=== PATIENT | female | born 1995 | race Caucasian/White ===

== ENCOUNTER 2018-01-17 11:25 | Observation (INO) | payer BC ==
[2018-01-17 11:30] VITALS: BMI 32.5
--- NOTE | 2018-01-17 12:27 | PDOC ---
History of Present Illness - General Chief Complaint: Pain Stated Complaint: PAIN/ ABD, BACK Time Seen by Provider: 01/17/18 11:50 History Source: Patient Exam Limitations: No Limitations - History of Present Illness Initial Comments: CHIEF COMPLAINT: 22 y/o afebrile female with no significant PMH c/o 10 days of low back pain and abdominal bloating. HISTORY OF PRESENT ILLNESS: The patient also admits to intermittent nausea and 1 episode of vomiting yesterday morning. She has been to 2 urgent cares who both gave her referrals for other doctors. She states her menstrual cycle started today. She denies fever, chills, cough, CP, SOB, hematuria, dysuria. She states she has not been sexually active for over a years and therefore is not concerned with STDs or . Her last normal BM was 2 days ago. She does not have a PCP as she goes to [facility] and is from [place]. Vital signs on arrival are within normal limits. REVIEW OF SYSTEMS: GENERAL/CONSTITUTIONAL: No fever/chills. No weakness. No weight change. HEAD, EYES, EARS, NOSE AND THROAT: No change in vision. No ear pain or discharge. No sore throat. CARDIOVASCULAR: No chest pain or shortness of breath. RESPIRATORY: No cough, wheezing, or hemoptysis. GASTROINTESTINAL: +abdominal cramping. +intermittent nausea and 1 episode of vomiting. No diarrhea. GENITOURINARY: No dysuria, frequency, or change in urination. MUSCULOSKELETAL: +low back pain. No joint or muscle swelling or pain. No neck pain. SKIN: No rash or easy bruising. NEUROLOGIC: No headache, vertigo, loss of consciousness, or loss of sensation. PHYSICAL EXAM: GENERAL: The patient is awake, alert, and fully oriented, in no acute distress. She is well appearing and ambulatory. HEAD: Normal with no signs of trauma. ENT: Pupils equal, round and reactive to light, extraocular movements intact, sclera anicteric, conjunctiva clear. Neck supple. LUNGS: Clear to auscultation bilaterally. Normal excursion. No respiratory distress or use of accessory muscles. CV: RRR, S1/S2, no MRG. Cap refill < 2 sec. ABDOMEN: Soft, non-distended, diffuse minimal TTP of lower abdomen. No tenderness over Mcburney's point. No rebound, guarding or rigidity. Right flank pain with palpation BACK: No CVA TTP b/l. No midline lumbar spine TTP or step offs. No paravertebral or reproducible low back pain. Full flexion and extension of lumbar spine. VAGINAL: No CMT or adnexal tenderness. Blood in the vaginal canal and coming from Os, consistent with menstruation. EXTREMITIES: Normal range of motion, no edema. NEUROLOGICAL: Normal speech, normal gait. CN II-XII grossly intact. SKIN: Warm, dry, normal turgor, no rashes or lesions noted. Past History - Past Medical History Allergies/Adverse Reactions: Allergies Allergy/AdvReac Type Severity Reaction Status Date / Time No Known Allergies Allergy Verified 01/17/18 11:26 Home Medications: Ambulatory Orders NK [No Known Home Medication] 01/17/18 COPD: No - Suicide/Smoking/Psychosocial Hx Smoking History: Never smoked Have you smoked in the past 12 months: No Information on smoking cessation initiated: No Hx Alcohol Use: No Drug/Substance Use Hx: No Substance Use Type: None *Physical Exam - Vital Signs Last Vital Signs Temp Pulse Resp BP Pulse Ox 98.5 F 76 18 125/74 100 01/17/18 11:27 01/17/18 11:27 01/17/18 11:27 01/17/18 11:27 01/17/18 11:27 ED Treatment Course - LABORATORY CBC & Chemistry Diagram: 01/17/18 12:42 01/17/18 12:42 Medical Decision Making - Medical Decision Making A/P: 22 y/o female with 10 days of abdominal cramping and low back pain. Plan is as follows: 1. Labs 2. UA/culture/hcg 3. Transvaginal Ultrasound 4. Renal/kidney ultrasound patient transferred to Dr. Jones for continuation of care. *DC/Admit/Observation/Transfer Diagnosis at time of Disposition: Abdominal pain - Referrals - Patient Instructions - Post Discharge Activity
--- NOTE | 2018-01-17 12:33 | PDOC ---
*Physical Exam - Vital Signs Last Vital Signs Temp Pulse Resp BP Pulse Ox 98.5 F 76 18 125/74 100 01/17/18 11:27 01/17/18 11:27 01/17/18 11:27 01/17/18 11:27 01/17/18 11:27 - Physical Exam Comments: 01/17/18 12:32 The patient was examined by [CASI Rodas] under my direct supervision. I personally evaluated the patient. I concur with the above findings and the plan of care. <Zbigniew Duque - Last Filed: 01/17/18 12:32> - Vital Signs Last Vital Signs Temp Pulse Resp BP Pulse Ox 98.5 F 76 18 125/74 100 01/17/18 11:27 01/17/18 11:27 01/17/18 11:27 01/17/18 11:27 01/17/18 11:27 <Evelyn Estrada - Last Filed: 01/17/18 15:56> ED Treatment Course - LABORATORY CBC & Chemistry Diagram: 01/17/18 12:42 01/17/18 12:42 - ADDITIONAL ORDERS Additional order review: Laboratory Results 01/17/18 01/17/18 01/17/18 13:47 12:42 12:42 Sodium 141 Potassium 4.4 Chloride 108 H Carbon Dioxide 27 Anion Gap 6 L BUN 23 H Creatinine 2.0 H Creat Clearance w eGFR 31.45 Random Glucose 78 Calcium 8.9 Total Bilirubin 0.5 AST 15 ALT 22 Alkaline Phosphatase 70 Total Protein 7.0 Albumin 4.0 Urine Color Straw Urine Appearance Clear Urine pH 5.0 Ur Specific [place] 1.006 Urine Protein 1+ H Urine Glucose (UA) Negative Urine Ketones Negative Urine Blood 3+ H Urine Nitrite Negative Urine Bilirubin Negative Urine Urobilinogen Negative Ur Leukocyte Esterase Negative Urine WBC (Auto) 2 Urine RBC (Auto) 27 Ur Epithelial Cells Few Urine Bacteria Rare Hyaline Casts 1 Urine Mucus Rare Urine HCG, Qual Negative Blood Type O NEGATIVE Antibody Screen Negative 01/17/18 12:42 RBC 4.44 MCV 87.0 MCHC 34.0 RDW 12.8 MPV 7.9 Neutrophils % 71.8 Lymphocytes % 18.2 Monocytes % 8.0 Eosinophils % 1.8 Basophils % 0.2 - Medications Given in the ED: ED Medications Discontinued Medications Generic Name Dose Route Start Last Admin Trade Name Freq PRN Reason Stop Dose Admin Sodium Chloride 1,000 mls @ 1,000 mls/hr 01/17/18 13:33 01/17/18 13:30 Normal Saline - IV 01/17/18 14:32 1,000 mls/hr ASDIR STA Administration Sodium Chloride 1,000 mls @ 1,000 mls/hr 01/17/18 13:34 01/17/18 13:45 Normal Saline - IV 01/17/18 14:33 1,000 mls/hr ASDIR STA Administration Ondansetron HCl 4 mg 01/17/18 13:33 01/17/18 12:50 Zofran Injection IVPUSH 01/17/18 13:34 4 mg ONCE ONE Administration <Evelyn Estrada - Last Filed: 01/17/18 15:56> Medical Decision Making - Medical Decision Making 01/17/18 15:13 The patient is a 22-year-old female, with no past medical history, who reports to the ED with 10 days of abdominal bloating and lower back pain. Patient reports associated nausea and vomiting; last episode was yesterday morning. <Evelyn Estrada - Last Filed: 01/17/18 15:56> *DC/Admit/Observation/Transfer <Zbigniew Duque - Last Filed: 01/17/18 12:32> - Attestations Scribe Attestion: 01/17/18 15:14 Documentation prepared by Evelyn Estrada, acting as medical recruiter for Zbigniew Duque MD. <Evelyn Estrada - Last Filed: 01/17/18 15:56> Diagnosis at time of Disposition: Abdominal pain
[2018-01-17] MEDS ORDERED: ONDANSETRON 4 MG/2 ML VIAL ONE (12:46)
[2018-01-17 13:00] LABS: BASO % 0.2 % (0-2.0); EOS % 1.8 % (0-4.5); HEMATOCRIT 38.6 % (32.4-45.2); HEMOGLOBIN 13.1 GM/dL (10.7-15.3); LYMPH % 18.2 % (8-40); MCH 29.6 pg (25.7-33.7); MEAN PLT VOLUME 7.9 fl (7.5-11.1); NEUT % 71.8 % (42.8-82.8); PLATELET COUNT 227 K/MM3 (134-434); RBC 4.44 M/mm3 (3.60-5.2); RDW 12.8 % (11.6-15.6); WHITE BLOOD COUNT 6.4 K/mm3 (4.0-10.0)
[2018-01-17 13:19] LABS: ANION GAP 6 (8-16); BLOOD UREA NITROGEN 23 mg/dL (7-18); CALCIUM 8.9 mg/dL (8.5-10.1); CHLORIDE 108 mmol/L (98-107); CO2 27 mmol/L (21-32); GLUCOSE,RANDOM 78 mg/dL (74-106); POTASSIUM 4.4 mmol/L (3.5-5.1); SGOT/AST 15 U/L (15-37); SGPT/ALT 22 U/L (12-78); SODIUM 141 mmol/L (136-145)
[2018-01-17 13:22] LABS: ALK PHOS 70 U/L (45-117); BILIRUBIN,TOTAL 0.5 mg/dL (0.2-1.0)
[2018-01-17] MEDS ORDERED: SODIUM CHLORIDE 1,000 ML IV STA ×4 (13:33→22:28)
[2018-01-17] MEDS ORDERED: ONDANSETRON 4 MG/2 ML VIAL IVPUSH ONE (13:33)
[2018-01-17 14:04] LABS: URINE APPEARANCE CLEAR; URINE BILIRUBIN NEGATIVE (<2.0 mg/dL); URINE COLOR STRAW; URINE GLUCOSE (UA) NEGATIVE (NEGATIVE); URINE KETONE NEGATIVE (NEGATIVE); URINE LEUK ESTERASE NEGATIVE (NEGATIVE); URINE NITRITE NEGATIVE (NEGATIVE); URINE UROBILINOGEN NEGATIVE mg/dL (0.2-1.0)
[2018-01-17 14:08] LABS: HCG,QUALITATIVE URINE NEGATIVE
[2018-01-17 14:09] LABS: URINE PROTEIN 1+ (NEGATIVE)
[2018-01-17 14:20] LABS: EPI CELLS FEW /HPF (FEW); URINE BACTERIA RARE /hpf (NONE SEEN); URINE HYALINE CAST 1 /lpf; URINE MUCUS RARE
--- NOTE | 2018-01-17 17:04 | PDOC ---
*Physical Exam - Vital Signs Last Vital Signs Temp Pulse Resp BP Pulse Ox 98.5 F 76 18 125/74 100 01/17/18 11:27 01/17/18 11:27 01/17/18 11:27 01/17/18 11:27 01/17/18 11:27 ED Treatment Course - LABORATORY CBC & Chemistry Diagram: 01/17/18 12:42 01/17/18 12:42 - ADDITIONAL ORDERS Additional order review: Laboratory Results 01/17/18 01/17/18 01/17/18 13:47 12:42 12:42 Sodium 141 Potassium 4.4 Chloride 108 H Carbon Dioxide 27 Anion Gap 6 L BUN 23 H Creatinine 2.0 H Creat Clearance w eGFR 31.45 Random Glucose 78 Calcium 8.9 Total Bilirubin 0.5 AST 15 ALT 22 Alkaline Phosphatase 70 Total Protein 7.0 Albumin 4.0 Urine Color Straw Urine Appearance Clear Urine pH 5.0 Ur Specific [place] 1.006 Urine Protein 1+ H Urine Glucose (UA) Negative Urine Ketones Negative Urine Blood 3+ H Urine Nitrite Negative Urine Bilirubin Negative Urine Urobilinogen Negative Ur Leukocyte Esterase Negative Urine WBC (Auto) 2 Urine RBC (Auto) 27 Ur Epithelial Cells Few Urine Bacteria Rare Hyaline Casts 1 Urine Mucus Rare Urine HCG, Qual Negative Blood Type O NEGATIVE Antibody Screen Negative 01/17/18 12:42 RBC 4.44 MCV 87.0 MCHC 34.0 RDW 12.8 MPV 7.9 Neutrophils % 71.8 Lymphocytes % 18.2 Monocytes % 8.0 Eosinophils % 1.8 Basophils % 0.2 - RADIOLOGY Radiology Studies Ordered: Category Date Time Status ABDOMEN & PELVIS CT W/O CONTR [CT] Stat CT Scan 01/17/18 16:56 Ordered - Medications Given in the ED: ED Medications Discontinued Medications Generic Name Dose Route Start Last Admin Trade Name Freq PRN Reason Stop Dose Admin Sodium Chloride 1,000 mls @ 1,000 mls/hr 01/17/18 13:33 01/17/18 13:30 Normal Saline - IV 01/17/18 14:32 1,000 mls/hr ASDIR STA Administration Sodium Chloride 1,000 mls @ 1,000 mls/hr 01/17/18 13:34 01/17/18 13:45 Normal Saline - IV 01/17/18 14:33 1,000 mls/hr ASDIR STA Administration Ondansetron HCl 4 mg 01/17/18 13:33 01/17/18 12:50 Zofran Injection IVPUSH 01/17/18 13:34 4 mg ONCE ONE Administration Medical Decision Making - Medical Decision Making 01/17/18 17:[address] abd pelvis to r/o appendicitis 01/17/18 18:[address] go to [address] after PO contrast. 01/17/18 18:27 01/17/18 20:09 CT read : The liver, gallbladder, adrenals, pancreas, and spleen are unremarkable, given the limitations of nonenhanced CT. There is no hydronephrosis or hydroureter bilaterally. There are no renal calculi bilaterally. The bilateral kidneys are unremarkable, given the limitations of nonenhanced CT. There are no enlarged abdominal or pelvic lymph nodes, by size criteria. The pelvic organs are grossly unremarkable, given the limitations of CT for evaluating them. There is a tampon within the vagina. The appendix is normal. The remainder of the bowel is unremarkable. The visualized bony structures are within normal limits. Findings: Unremarkable CT of the abdomen and pelvis, given the limitations of a nonenhanced CT *DC/Admit/Observation/Transfer Diagnosis at time of Disposition: Abdominal pain, Acute kidney injury (nontraumatic) - Discharge Dispostion Decision to Admit order: Yes - Referrals - Patient Instructions - Post Discharge Activity
[2018-01-17] MEDS ORDERED: ACETAMINOPHEN 1000 MG/100 ML VIAL (NON FORMULARY) IVPB ONE (20:35)
[2018-01-17] MEDS ORDERED: ACETAMINOPHEN INJECTION 100 ML IVPB ONE (20:39)
[2018-01-17 21:25] LABS: ALBUMIN 3.4 g/dl (3.4-5.0); ANION GAP 8 (8-16); BLOOD UREA NITROGEN 22 mg/dL (7-18); CALCIUM 7.9 mg/dL (8.5-10.1); CHLORIDE 111 mmol/L (98-107); CO2 25 mmol/L (21-32); GLUCOSE,RANDOM 104 mg/dL (74-106); SODIUM 144 mmol/L (136-145)
[2018-01-17 21:28] LABS: ALK PHOS 58 U/L (45-117); BILIRUBIN,TOTAL 0.3 mg/dL (0.2-1.0); CREATININE 1.7 mg/dL (0.55-1.02); SGPT/ALT 19 U/L (12-78); TOT PROT 5.9 g/dl (6.4-8.2)
[2018-01-17 21:29] LABS: POTASSIUM 4.4 mmol/L (3.5-5.1); SGOT/AST 18 U/L (15-37)
--- NOTE | 2018-01-17 21:41 | HP ---
Admitting History and Physical - Primary Care Physician PCP: Lelia Haywood - Admission History of Present Illness: The patient also admits to intermittent nausea and 1 episode of vomiting yesterday morning. She has been to 2 urgent cares who both gave her referrals for other doctors. She states her menstrual cycle started today. She denies fever, chills, cough, CP, SOB, hematuria, dysuria. She states she has not been sexually active for over a years and therefore is not concerned with STDs or . Her last normal BM was 2 days ago. She does not have a PCP as she goes to [facility] and is from [place]. - Past Medical History ...LMP: 01/17/18 ...: No - Smoking History Smoking history: Never smoked Have you smoked in the past 12 months: No - Alcohol/Substance Use Hx Alcohol Use: No Home Medications - Allergies Allergies/Adverse Reactions: Allergies Allergy/AdvReac Type Severity Reaction Status Date / Time No Known Allergies Allergy Verified 01/17/18 11:26 - Home Medications Home Medications: Ambulatory Orders NK [No Known Home Medication] 01/17/18 Physical Examination Vital Signs: Vital Signs Temperature 98.5 F 01/17/18 11:27 Pulse Rate 72 01/17/18 17:47 Respiratory Rate 18 01/17/18 17:47 Blood Pressure 116/72 01/17/18 17:47 O2 Sat by Pulse Oximetry (%) 100 01/17/18 17:47 Constitutional: Yes: No Distress HENT: Yes: Atraumatic Neck: Yes: Supple Cardiovascular: Yes: Regular Rate and Rhythm Respiratory: Yes: CTA Bilaterally Gastrointestinal: Yes: Normal Bowel Sounds Extremities: Yes: WNL Neurological: Yes: Alert, Oriented Labs: CBC, BMP 01/17/18 12:42 01/17/18 20:50 Problem List - Problems (1) Abdominal pain Assessment/Plan: much better probably nsaid related Code(s): R10.9 - UNSPECIFIED ABDOMINAL PAIN (2) Acute kidney injury (nontraumatic) Assessment/Plan: ivf renal consult was on nsaids for back pain Code(s): N17.9 - ACUTE KIDNEY FAILURE, UNSPECIFIED Assessment/Plan Laboratory Tests 01/17/18 01/17/18 01/17/18 12:42 12:42 12:42 WBC 6.4 RBC 4.44 Hgb 13.1 Hct 38.6 MCV 87.0 MCH 29.6 MCHC 34.0 RDW 12.8 Plt Count 227 MPV 7.9 Absolute Neuts (auto) 4.6 Neutrophils % 71.8 Lymphocytes % 18.2 Monocytes % 8.0 Eosinophils % 1.8 Basophils % 0.2 Nucleated RBC % 0 Sodium 141 Potassium 4.4 Chloride 108 H Carbon Dioxide 27 Anion Gap 6 L BUN 23 H Creatinine 2.0 H Creat Clearance w eGFR 31.45 Random Glucose 78 Calcium 8.9 Total Bilirubin 0.5 AST 15 ALT 22 Alkaline Phosphatase 70 Total Protein 7.0 Albumin 4.0 Urine Color Urine Appearance Urine pH Ur Specific [place] Urine Protein Urine Glucose (UA) Urine Ketones Urine Blood Urine Nitrite Urine Bilirubin Urine Urobilinogen Ur Leukocyte Esterase Urine WBC (Auto) Urine RBC (Auto) Ur Epithelial Cells Urine Bacteria Hyaline Casts Urine Mucus Urine HCG, Qual Blood Type O NEGATIVE Antibody Screen Negative 01/17/18 01/17/18 13:47 20:50 WBC RBC Hgb Hct MCV MCH MCHC RDW Plt Count MPV Absolute Neuts (auto) Neutrophils % Lymphocytes % Monocytes % Eosinophils % Basophils % Nucleated RBC % Sodium 144 Potassium 4.4 Chloride 111 H Carbon Dioxide 25 Anion Gap 8 BUN 22 H Creatinine 1.7 H Creat Clearance w eGFR 37.94 Random Glucose 104 Calcium 7.9 L Total Bilirubin 0.3 AST 18 ALT 19 Alkaline Phosphatase 58 D Total Protein 5.9 L Albumin 3.4 Urine Color Straw Urine Appearance Clear Urine pH 5.0 Ur Specific [place] 1.006 Urine Protein 1+ H Urine Glucose (UA) Negative Urine Ketones Negative Urine Blood 3+ H Urine Nitrite Negative Urine Bilirubin Negative Urine Urobilinogen Negative Ur Leukocyte Esterase Negative Urine WBC (Auto) 2 Urine RBC (Auto) 27 Ur Epithelial Cells Few Urine Bacteria Rare Hyaline Casts 1 Urine Mucus Rare Urine HCG, Qual Negative Blood Type Antibody Screen Active Medications Generic Name Dose Route Start Last Admin Trade Name Freq PRN Reason Stop Dose Admin Acetaminophen 650 mg 01/17/18 21:43 01/18/18 14:25 Tylenol - PO 650 mg Q6H PRN Administration FEVER Sodium Chloride 1,000 mls @ 100 mls/hr 01/17/18 21:45 01/18/18 11:29 Normal Saline - IV 100 mls/hr ASDIR WEST Administration Ondansetron HCl 4 mg 01/17/18 21:43 Zofran Injection IVPB Q4H PRN NAUSEA AND/OR VOMITING Pantoprazole Sodium 40 mg 01/18/18 17:00 Protonix - PO DAILY WEST
[2018-01-17] MEDS ORDERED: ONDANSETRON 4 MG/2 ML VIAL IVPB PRN (21:43)
[2018-01-17] MEDS: SODIUM CHLORIDE 1,000 ML IV SCH (23:20)
[2018-01-18] MEDS ORDERED: ACETAMINOPHEN 325 MG TABLET (FP) ONE (04:36)
[2018-01-18] MEDS: ACETAMINOPHEN 325 MG TABLET (FP) PO PRN ×3 (04:39→23:15)
[2018-01-18 06:45] LABS: BASO % 0.2 % (0-2.0); EOS % 1.1 % (0-4.5); HEMATOCRIT 33.1 % (32.4-45.2); HEMOGLOBIN 11.5 GM/dL (10.7-15.3); LYMPH % 18.9 % (8-40); MCH 30.4 pg (25.7-33.7); MCHC 34.7 g/dl (32.0-36.0); MEAN CELL VOLUME 87.6 fl (80-96); MONO % 9.6 % (3.8-10.2); NEUT % 70.2 % (42.8-82.8); PLATELET COUNT 171 K/MM3 (134-434); RBC 3.78 M/mm3 (3.60-5.2); RDW 12.8 % (11.6-15.6); WHITE BLOOD COUNT 6.7 K/mm3 (4.0-10.0)
[2018-01-18 07:26] LABS: ALBUMIN 3.2 g/dl (3.4-5.0); ANION GAP 6 (8-16); BLOOD UREA NITROGEN 19 mg/dL (7-18); CALCIUM 7.9 mg/dL (8.5-10.1); CHLORIDE 115 mmol/L (98-107); CO2 23 mmol/L (21-32); CREATININE 1.7 mg/dL (0.55-1.02); GLUCOSE,RANDOM 81 mg/dL (74-106); POTASSIUM 4.5 mmol/L (3.5-5.1); SGOT/AST 15 U/L (15-37); SGPT/ALT 18 U/L (12-78); SODIUM 144 mmol/L (136-145)
[2018-01-18 07:29] LABS: ALK PHOS 56 U/L (45-117); BILIRUBIN,TOTAL 0.3 mg/dL (0.2-1.0); TOT PROT 5.5 g/dl (6.4-8.2)
[2018-01-18] MEDS: SODIUM CHLORIDE 1,000 ML IV SCH (11:29)
--- NOTE | 2018-01-18 16:23 | PN ---
Progress Note, Physician History of Present Illness: feeling better - Current Medication List Current Medications: Active Medications Acetaminophen (Tylenol -) 650 mg PO Q6H PRN PRN Reason: FEVER Last Admin: 01/18/18 14:25 Dose: 650 mg Sodium Chloride (Normal Saline -) 1,000 mls @ 100 mls/hr IV ASDIR WEST Last Admin: 01/18/18 11:29 Dose: 100 mls/hr Ondansetron HCl (Zofran Injection) 4 mg IVPB Q4H PRN PRN Reason: NAUSEA AND/OR VOMITING - Objective Vital Signs: Vital Signs Temperature 99.4 F 01/18/18 15:32 Pulse Rate 88 01/18/18 15:32 Respiratory Rate 20 01/18/18 15:32 Blood Pressure 128/69 01/18/18 15:32 O2 Sat by Pulse Oximetry (%) 99 01/18/18 08:55 Constitutional: Yes: No Distress HENT: Yes: Atraumatic Neck: Yes: Supple Cardiovascular: Yes: Regular Rate and Rhythm Respiratory: Yes: CTA Bilaterally Gastrointestinal: Yes: Normal Bowel Sounds Extremities: Yes: WNL Edema: No Neurological: Yes: Alert, Oriented Labs: CBC, BMP 01/18/18 06:05 01/18/18 06:05 Problem List - Problems (1) Abdominal pain Assessment/Plan: resolved tolerating diet Code(s): R10.9 - UNSPECIFIED ABDOMINAL PAIN (2) Acute kidney injury (nontraumatic) Assessment/Plan: cr improving renal on board continue ivf Code(s): N17.9 - ACUTE KIDNEY FAILURE, UNSPECIFIED
--- NOTE | 2018-01-18 16:51 | CON.GI ---
Consult Consult Specialty:: GI Reason for Consultation:: Dyspepsia - History of Present Illness History of Present Illness: A healthy 22F with acute onset abdominal pain and few episodes of nausea and vomiting after rx for back pain with an NSAID, which she took continuously for few days. Was also noted to have mild BUN and Cr elevation. No persona, or family hx of GI/ problems. Denees fever, chills, jaundice, dysophagia, odynophagia, diarrhea, melena, hematochezia. Tolerated regular diet this afternoon w/o issues. Reports being no longer symptomatic. On IVF and antiemetic PRN. CBC normal, CMP significant for mid renal insufficiency, which is improving. ?lipase - Past Medical History ...LMP: 01/17/18 ...: No - Alcohol/Substance Use Hx Alcohol Use: No - Smoking History Smoking history: Never smoked Have you smoked in the past 12 months: No Home Medications - Allergies Allergies/Adverse Reactions: Allergies Allergy/AdvReac Type Severity Reaction Status Date / Time No Known Allergies Allergy Verified 01/17/18 11:26 - Home Medications Home Medications: Ambulatory Orders NK [No Known Home Medication] 01/17/18 Family Disease History - Family Disease History Family History: Unremarkable Review of Systems Findings/Remarks: as per HPI. H&P, ED Physical Exam-GI Vital Signs: Vital Signs Temperature 99.4 F 01/18/18 15:32 Pulse Rate 88 01/18/18 15:32 Respiratory Rate 20 01/18/18 15:32 Blood Pressure 128/69 01/18/18 15:32 O2 Sat by Pulse Oximetry (%) 99 01/18/18 08:55 Constitutional: Yes: Well Nourished, No Distress, Calm Eyes: Yes: Conjunctiva Clear HENT: Yes: Atraumatic Neck: Yes: Supple Cardiovascular: Yes: Regular Rate and Rhythm Respiratory: Yes: Regular Gastrointestinal Inspection: No: Ascites, Distention ...Auscultate: Yes: Normoactive Bowel Sounds ...Palpate: Yes: Soft. No: Firm/Rigid, Guarding, Mass, Tenderness, Tenderness, Epigastium, Tenderness, Rebound Neurological: Yes: Alert, Oriented Labs: CBC, BMP 01/18/18 06:05 01/18/18 06:05 Laboratory Last Values WBC 6.7 K/mm3 (4.0-10.0) 01/18/18 06:05 RBC 3.78 M/mm3 (3.60-5.2) 01/18/18 06:05 Hgb 11.5 GM/dL (10.7-15.3) 01/18/18 06:05 Hct 33.1 % (32.4-45.2) 01/18/18 06:05 MCV 87.6 fl (80-96) 01/18/18 06:05 MCH 30.4 pg (25.7-33.7) 01/18/18 06:05 MCHC 34.7 g/dl (32.0-36.0) 01/18/18 06:05 RDW 12.8 % (11.6-15.6) 01/18/18 06:05 Plt Count 171 K/MM3 (134-434) D 01/18/18 06:05 MPV 8.0 fl (7.5-11.1) 01/18/18 06:05 Absolute Neuts (auto) 4.7 # 01/18/18 06:05 Neutrophils % 70.2 % (42.8-82.8) 01/18/18 06:05 Lymphocytes % 18.9 % (8-40) 01/18/18 06:05 Monocytes % 9.6 % (3.8-10.2) 01/18/18 06:05 Eosinophils % 1.1 % (0-4.5) 01/18/18 06:05 Basophils % 0.2 % (0-2.0) 01/18/18 06:05 Nucleated RBC % 0 % (0-0) 01/18/18 06:05 Sodium 144 mmol/L (136-145) 01/18/18 06:05 Potassium 4.5 mmol/L (3.5-5.1) 01/18/18 06:05 Chloride 115 mmol/L (98-107) H 01/18/18 06:05 Carbon Dioxide 23 mmol/L (21-32) 01/18/18 06:05 Anion Gap 6 (8-16) L 01/18/18 06:05 BUN 19 mg/dL (7-18) H 01/18/18 06:05 Creatinine 1.7 mg/dL (0.55-1.02) H 01/18/18 06:05 Creat Clearance w eGFR 37.94 (>60) 01/18/18 06:05 Random Glucose 81 mg/dL (74-106) 01/18/18 06:05 Calcium 7.9 mg/dL (8.5-10.1) L 01/18/18 06:05 Total Bilirubin 0.3 mg/dL (0.2-1.0) 01/18/18 06:05 AST 15 U/L (15-37) 01/18/18 06:05 ALT 18 U/L (12-78) 01/18/18 06:05 Alkaline Phosphatase 56 U/L (45-117) 01/18/18 06:05 Total Protein 5.5 g/dl (6.4-8.2) L 01/18/18 06:05 Albumin 3.2 g/dl (3.4-5.0) L 01/18/18 06:05 Urine Color Straw 01/17/18 13:47 Urine Appearance Clear 01/17/18 13:47 Urine pH 5.0 (5.0-8.0) 01/17/18 13:47 Ur Specific [place] 1.006 (1.001-1.035) 01/17/18 13:47 Urine Protein 1+ (NEGATIVE) H 01/17/18 13:47 Urine Glucose (UA) Negative (NEGATIVE) 01/17/18 13:47 Urine Ketones Negative (NEGATIVE) 01/17/18 13:47 Urine Blood 3+ (NEGATIVE) H 01/17/18 13:47 Urine Nitrite Negative (NEGATIVE) 01/17/18 13:47 Urine Bilirubin Negative (<2.0 mg/dL) 01/17/18 13:47 Urine Urobilinogen Negative mg/dL (0.2-1.0) 01/17/18 13:47 Ur Leukocyte Esterase Negative (NEGATIVE) 01/17/18 13:47 Urine WBC (Auto) 2 /hpf (3-5) 01/17/18 13:47 Urine RBC (Auto) 27 /hpf (0-3) 01/17/18 13:47 Ur Epithelial Cells Few /HPF (FEW) 01/17/18 13:47 Urine Bacteria Rare /hpf (NONE SEEN) 01/17/18 13:47 Hyaline Casts 1 /lpf 01/17/18 13:47 Urine Mucus Rare 01/17/18 13:47 Urine HCG, Qual Negative 01/17/18 13:47 Blood Type O NEGATIVE 01/17/18 12:42 Antibody Screen Negative 01/17/18 12:42 Imaging - Results Cat Scan: Report Reviewed Ultrasound: Report Reviewed Problem List - Problems (1) Dyspepsia Code(s): R10.13 - EPIGASTRIC PAIN (2) Abdominal pain Code(s): R10.9 - UNSPECIFIED ABDOMINAL PAIN (3) Acute kidney injury (nontraumatic) Code(s): N17.9 - ACUTE KIDNEY FAILURE, UNSPECIFIED Assessment/Plan A healthy 22 with acute onset dyspepsia after initialing NSAID therapy for back pain. No stigmata of GI bleeding, acute/surgical abdomen, or significant inflammatory process. Asymptomatic. Tolerating regular diet. ?NSAID gastritis/ nephropathy, ?gastroenteritis. ?mild pancreatitis. Back pain management as per primary team. Diet as tolerated. Add Protonics 40 mg po qam x 14 days. Stop NSAIDs. Follow up with GI as OP in 1 week. Discussed with the patient.
--- NOTE | 2018-01-18 17:34 | CONSULT ---
Consult Consult Specialty:: Nephrology Reason for Consultation:: KARLA - History of Present Illness Chief Complaint: back pain History of Present Illness: Pt is a 22 year old female with no significant pmhx who presents to the ER with back pain. She also had an episode of vomiting. She has had the back pain for about 10 days. She went to urgent care who gave her naproxen and a muscle relaxant. She was found to be in renal failure and I was called to evaluate her. She denies history of CKD. She denies taking any meds aside from a few days of naproxen. She denies dysuria or hematuria. She denies family history of CKD. She denies shortness of breath or lower ext edema. She gave a urine sample however she is on her menstrual period. - History Source History Provided By: Patient, Medical Record - Past Medical History ...LMP: 01/17/18 ...: No - Alcohol/Substance Use Hx Alcohol Use: No - Smoking History Smoking history: Never smoked Have you smoked in the past 12 months: No Home Medications - Allergies Allergies/Adverse Reactions: Allergies Allergy/AdvReac Type Severity Reaction Status Date / Time No Known Allergies Allergy Verified 01/17/18 11:26 - Home Medications Home Medications: Ambulatory Orders NK [No Known Home Medication] 01/17/18 Family Disease History - Family Disease History Family History: Denies Review of Systems - Review of Systems Constitutional: reports: Malaise Eyes: reports: No Symptoms HENT: reports: No Symptoms Neck: reports: No Symptoms Cardiovascular: reports: No Symptoms Respiratory: reports: No Symptoms Gastrointestinal: reports: No Symptoms Genitourinary: denies: Burning, Dysuria Musculoskeletal: reports: Back Pain Neurological: reports: No Symptoms Endocrine: reports: No Symptoms Hematology/Lymphatic: reports: No Symptoms Psychiatric: reports: No Symptoms Physical Exam Vital Signs: Vital Signs Temperature 99.4 F 01/18/18 15:32 Pulse Rate 88 01/18/18 15:32 Respiratory Rate 20 01/18/18 15:32 Blood Pressure 128/69 01/18/18 15:32 O2 Sat by Pulse Oximetry (%) 99 01/18/18 08:55 Constitutional: Yes: Calm Eyes: Yes: Conjunctiva Clear HENT: Yes: Atraumatic Neck: Yes: Supple Cardiovascular: Yes: S1, S2 Respiratory: Yes: CTA Bilaterally Gastrointestinal: Yes: Normal Bowel Sounds, Soft Renal/: Yes: WNL Breast(s): Yes: WNL Musculoskeletal: Yes: WNL Edema: No Integumentary: Yes: WNL Neurological: Yes: Oriented Psychiatric: Yes: Oriented Labs: CBC, BMP 01/18/18 06:05 01/18/18 06:05 Selected Entries 01/17/18 01/18/18 11:27 15:32 Blood Pressure 125/74 128/69 Laboratory Tests 01/17/18 01/17/18 01/17/18 12:42 12:42 13:47 Hgb 13.1 Hct 38.6 Sodium Potassium Creatinine 2.0 H Creat Clearance w eGFR 31.45 Urine Protein 1+ H Urine Blood 3+ H Urine HCG, Qual Negative 01/17/18 01/18/18 01/18/18 20:50 06:05 06:05 Hgb 11.5 Hct 33.1 Sodium 144 144 Potassium 4.4 4.5 Creatinine 1.7 H 1.7 H Creat Clearance w eGFR 37.94 37.94 Urine Protein Urine Blood Urine HCG, Qual Imaging - Results Ultrasound: Report Reviewed (renal ultrasound reviewed) Problem List - Problems (1) Back pain Code(s): M54.9 - DORSALGIA, UNSPECIFIED (2) Abdominal pain Code(s): R10.9 - UNSPECIFIED ABDOMINAL PAIN (3) Acute kidney injury (nontraumatic) Code(s): N17.9 - ACUTE KIDNEY FAILURE, UNSPECIFIED Assessment/Plan Current Medications Generic Name Dose Route Start Last Admin Trade Name Freq PRN Reason Stop Dose Admin Acetaminophen 650 mg 01/17/18 21:43 01/18/18 14:25 Tylenol - PO 650 mg Q6H PRN Administration FEVER Sodium Chloride 1,000 mls @ 100 mls/hr 01/17/18 21:45 01/18/18 11:29 Normal Saline - IV 100 mls/hr ASDIR WEST Administration Ondansetron HCl 4 mg 01/17/18 21:43 Zofran Injection IVPB Q4H PRN NAUSEA AND/OR VOMITING Pantoprazole Sodium 40 mg 01/18/18 17:00 Protonix - PO DAILY WEST Impression 1. KARLA 2. microscopic hematuria - may be from menstrual period 3. back pain Plan - check urine lytes and lap layer (may be affected as she is on fluids) - check cpk - cont with fluids - renal ultrasound reviewed - repeat ua now - pt asked me to called her mom, Terra. [phone] - discussed plan at length - mother says pt first felt the pain after lifting something
[2018-01-18] MEDS: PANTOPRAZOLE 40 MG TABLET (FP) PO SCH (18:34)
[2018-01-18 19:40] LABS: ALBUMIN 3.3 g/dl (3.4-5.0); ANION GAP 9 (8-16); BILIRUBIN,TOTAL 0.3 mg/dL (0.2-1.0); BLOOD UREA NITROGEN 16 mg/dL (7-18); CALCIUM 8.1 mg/dL (8.5-10.1); CHLORIDE 114 mmol/L (98-107); CO2 23 mmol/L (21-32); CREATININE 1.7 mg/dL (0.55-1.02); GLUCOSE,RANDOM 87 mg/dL (74-106); SGOT/AST 13 U/L (15-37); SGPT/ALT 18 U/L (12-78); SODIUM 146 mmol/L (136-145); TOT PROT 5.8 g/dl (6.4-8.2)
[2018-01-18 19:41] LABS: ALK PHOS 57 U/L (45-117)
[2018-01-18 21:33] LABS: URINE APPEARANCE CLEAR; URINE BILIRUBIN NEGATIVE (<2.0 mg/dL); URINE COLOR COLORLESS; URINE GLUCOSE (UA) NEGATIVE (NEGATIVE); URINE KETONE NEGATIVE (NEGATIVE); URINE LEUK ESTERASE NEGATIVE (NEGATIVE); URINE NITRITE NEGATIVE (NEGATIVE); URINE PROTEIN NEGATIVE (NEGATIVE); URINE UROBILINOGEN NEGATIVE mg/dL (0.2-1.0)
[2018-01-18 21:49] LABS: EPI CELLS RARE /HPF (FEW)
[2018-01-18] MEDS ORDERED: SODIUM CHLORIDE 0.45% 1,000 ML IV SCH ×2 (23:00→23:15)
--- NOTE | 2018-01-18 23:00 | PN ---
Progress Note (short form) - Note Progress Note: Laboratory Tests 01/18/18 01/18/18 18:45 21:00 Sodium 146 H Potassium 4.0 Creatinine 1.7 H Urine Protein Negative Urine Blood 2+ H labs reviewed change fluids to 1/2 ns repeat labs in am Laboratory Tests 01/18/18 18:45 Creatine Kinase 47 cpk normal - FENa is 3.84 with a high urine sodium, pt had received several liters of saline prior, likely not very accurate - called pts mother, Terra, and gave her an update Dr Hernandez Problem List - Problems (1) Back pain Code(s): M54.9 - DORSALGIA, UNSPECIFIED (2) Abdominal pain Code(s): R10.9 - UNSPECIFIED ABDOMINAL PAIN (3) Acute kidney injury (nontraumatic) Code(s): N17.9 - ACUTE KIDNEY FAILURE, UNSPECIFIED
[2018-01-19 07:23] LABS: ALBUMIN 3.1 g/dl (3.4-5.0); ANION GAP 7 (8-16); BILIRUBIN,TOTAL 0.4 mg/dL (0.2-1.0); BLOOD UREA NITROGEN 14 mg/dL (7-18); CALCIUM 8.1 mg/dL (8.5-10.1); CHLORIDE 113 mmol/L (98-107); CO2 24 mmol/L (21-32); CREATININE 1.7 mg/dL (0.55-1.02); GLUCOSE,RANDOM 72 mg/dL (74-106); POTASSIUM 4.1 mmol/L (3.5-5.1); SGOT/AST 14 U/L (15-37); SGPT/ALT 17 U/L (12-78); SODIUM 144 mmol/L (136-145); TOT PROT 5.5 g/dl (6.4-8.2)
[2018-01-19 07:24] LABS: ALK PHOS 53 U/L (45-117)
[2018-01-19] MEDS: PANTOPRAZOLE 40 MG TABLET (FP) PO SCH (09:50)
--- NOTE | 2018-01-19 10:51 | PN ---
Progress Note, Physician Chief Complaint: im feeling a little better History of Present Illness: patient seen adn examined at bedside. states she had experienced back pain overnight but it was relieved with tylenol. she is not feeling nausea anymore. she denies any Cp/SOb/N/v and is urinating without any problems. Her Cr still remains at 1.7 as of this morning. renal U/S showed no evidence of hydronephrosis or any acute obstruction. - Current Medication List Current Medications: Active Medications Acetaminophen (Tylenol -) 650 mg PO Q6H PRN PRN Reason: FEVER Last Admin: 01/18/18 23:15 Dose: 650 mg Sodium Chloride (1/2 Normal Saline) 1,000 mls @ 125 mls/hr IV ASDIR WEST Last Admin: 01/18/18 23:15 Dose: 125 mls/hr Ondansetron HCl (Zofran Injection) 4 mg IVPB Q4H PRN PRN Reason: NAUSEA AND/OR VOMITING Pantoprazole Sodium (Protonix -) 40 mg PO DAILY [facility] Last Admin: 01/19/18 09:50 Dose: 40 mg - Objective Vital Signs: Vital Signs Temperature 97.9 F 01/19/18 06:00 Pulse Rate 62 01/19/18 06:00 Respiratory Rate 20 01/19/18 06:00 Blood Pressure 130/66 01/19/18 06:00 O2 Sat by Pulse Oximetry (%) 99 01/19/18 06:00 Constitutional: Yes: No Distress Cardiovascular: Yes: Regular Rate and Rhythm, S1, S2 Respiratory: Yes: CTA Bilaterally Gastrointestinal: Yes: Normal Bowel Sounds, Soft. No: Tenderness Musculoskeletal: Yes: Back Pain Edema: No (no LE edema) Labs: CBC, BMP 01/18/18 06:05 01/19/18 06:30 - ....Imaging Ultrasound: Report Reviewed Problem List - Problems (1) Abdominal pain Code(s): R10.9 - UNSPECIFIED ABDOMINAL PAIN (2) Acute kidney injury (nontraumatic) Code(s): N17.9 - ACUTE KIDNEY FAILURE, UNSPECIFIED (3) Back pain Code(s): M54.9 - DORSALGIA, UNSPECIFIED Assessment/Plan patients Cr still remains at 1.7 -cont w/ fluids -monitor CMP and fluid status -monitor pain- avoid nephrotoxic drugs
[2018-01-19 13:00] VITALS: BP 108/76; PULSE 69; TEMP 97.7
--- NOTE | 2018-01-19 13:51 | DS ---
Physical Examination Vital Signs: Vital Signs Temperature 97.7 F 01/19/18 10:00 Pulse Rate 69 01/19/18 10:00 Respiratory Rate 20 01/19/18 10:00 Blood Pressure 108/76 01/19/18 10:00 O2 Sat by Pulse Oximetry (%) 99 01/19/18 06:00 Constitutional: Yes: No Distress HENT: Yes: Atraumatic Neck: Yes: Supple Cardiovascular: Yes: Regular Rate and Rhythm Respiratory: Yes: CTA Bilaterally Gastrointestinal: Yes: Normal Bowel Sounds Extremities: Yes: WNL Neurological: Yes: Alert, Oriented Labs: CBC, BMP 01/18/18 06:05 01/19/18 06:30 Discharge Summary Reason For Visit: ACUTE NONTRAUMATIC KIDNEY INJURY, ABDOMINAL PAIN Current Active Problems Abdominal pain (Acute) Acute kidney injury (nontraumatic) (Acute) Back pain (Acute) Dyspepsia (Acute) - Instructions Diet, Activity, Other Instructions: avoid nephrotoxic medicine see dr hernandez as per him Referrals: Shaun Hernandez MD [Staff Physician] - Lelia Haywood MD [Staff Physician] - Disposition: HOME - Home Medications Comprehensive Discharge Medication List: Ambulatory Orders NK [No Known Home Medication] 01/17/18 avoid nephro[address] medicine see dr hernandez as per him dc home
--- NOTE | 2018-01-19 16:30 | PN ---
Teaching Attending Note Name of Resident: Namita Ortiz (Nephrology) ATTENDING PHYSICIAN STATEMENT I saw and evaluated the patient. I reviewed the resident's note and discussed the case with the resident. I agree with the resident's findings and plan as documented. Renal Follow UP Pt seen and examined at bedside. She is awake and alert. She denies shortness of breath. Laboratory Tests 01/18/18 01/18/18 01/19/18 18:45 21:00 06:30 Sodium 144 Creatinine 1.7 H 1.7 H Urine Protein Negative Urine Blood 2+ H GHAZALA M-[facility] PERRI Screen c-ANCA Proteinase 3 (PR3) p-ANCA Atypical p-ANCA Myeloperoxidase Ab Double Strand DNA Ab Glomerular Base Memb Ab 01/19/18 01/19/18 01/19/18 09:15 09:15 09:15 Sodium Creatinine Urine Protein Urine Blood GHAZALA M-[facility] Pending PERRI Screen Pending c-ANCA Pending Proteinase 3 (PR3) Pending p-ANCA Pending Atypical p-ANCA Pending Myeloperoxidase Ab Pending Double Strand DNA Ab Pending Glomerular Base Memb Ab Pending cardio s1s2 pulm clear GI soft, obese back pain on palpation lower back ext neg edema neuro awake and alert Impression 1. KARLA vs CKD 2. microscopic hematuria - may be from menstrual period 3. back pain Plan - family braught in old records, pt had blood in her urine from last years - creatinine is unchanged - sent part of CKD workup - will see pt in office next week - discussed kidney biopsy with pt and family - pt sister at bedside - discussed plan at length Problem List - Problems (1) Back pain Code(s): M54.9 - DORSALGIA, UNSPECIFIED (2) Abdominal pain Code(s): R10.9 - UNSPECIFIED ABDOMINAL PAIN (3) Acute kidney injury (nontraumatic) Code(s): N17.9 - ACUTE KIDNEY FAILURE, UNSPECIFIED
[2018-01-22 10:08] LABS: ANTIGLOMERULAR BASEMENT MEN.AB 4 units (0-20)
[2018-01-23 16:50] LABS: ATYPICAL pANCA Negative titer (Neg:<1:20); C-ANCA Negative titer (Neg:<1:20); P-ANCA Negative titer (Neg:<1:20); PROTEINASE-3 ANTIBODY <3.5 U/mL (0.0-3.5)
== END 2018-01-19 14:35 | disposition home or self-care (01) ==
LOC: JER 11:25 → JERBED 20:10 → J6S 01-18 14:05
PROVIDERS: ADMIT Internal Medicine; ATTEND Internal Medicine
PROC: 3E033NZ Introduction of Analgesics, Hypnotics, Sedatives into Peripheral Vein, Percutaneous Approach (ICD-10-PCS; principal; 2018-01-17)
PROC: 3E033GC Introduction of Other Therapeutic Substance into Peripheral Vein, Percutaneous Approach (ICD-10-PCS; 2018-01-17)
PROC: 3E0337Z Introduction of Electrolytic and Water Balance Substance into Peripheral Vein, Percutaneous Approach (ICD-10-PCS; 2018-01-17)
DX: R10.9 Unspecified abdominal pain (principal); N17.9 Acute kidney failure, unspecified; R10.13 Epigastric pain; M54.9 Dorsalgia, unspecified; D50.9 Iron deficiency anemia, unspecified
CPT/HCPCS: 36415; 74176-TC; 76775-TC; 76830-TC; 80053; 81003; 81015; 82436; 82550; 82570; 83516; 83520; 84133; 84155; 84165; 84300; 84703; 85025; 85651; 86038; 86225; 86256; 86850; 86900; 86901; 87086; 99285-25; G0378; J0131; J7030